=== PATIENT | female | born 1980 | race Caucasian/White ===

== ENCOUNTER 2024-02-25 07:00 | Outpatient (CLI) | payer OTHER ==
--- NOTE | 2024-02-25 15:31 | XRAY Report ---
PROCEDURE: Lumbar Spine 2-3V INDICATIONS: RIGHT LUMBAR RADICULOPATHY TECHNIQUE: 2 views of the lumbar spine were acquired. COMPARISON: None. FINDINGS: Bones: 5 [id number] vertebrae are present. Minor levocurvature with the apex at L2. Straighteni ng of the normal lumbar lordosis. Otherwise normal alignment. Moderate disc height loss L4-5 and L5-S 1 with mild endplate spurs. There is normal bony alignment. No vertebral body compression fractures. No suspicious bony lesions. Soft tissues: Overlying bowel gas pattern is normal. No suspicious soft tissue calcifications. IMPRESSION: Degenerative disc and endplate changes at L4-5. Reviewed by: Rola Dukes MD on 02/25/2024 3:29 PM PDT Approved by: Rola Dukes MD on 02/25/2024 3:29 PM PDT Station ID: [id number]
== END 2024-02-25 23:59 | disposition home or self-care (01) ==
LOC: DI.S 07:00
PROVIDERS: ATTEND Registered Nurse
DX: M51.36 Other intervertebral disc degeneration, lumbar region (principal); M51.37 Other intervertebral disc degeneration, lumbosacral region

== ENCOUNTER 2024-03-28 09:30 | Emergency (ER) | payer OTHER ==
--- NOTE | 2024-03-28 10:18 | ED Physician Documentation ---
PD HPI BACK PAIN - Stated complaint Stated Complaint: NECK/BACK PX - Chief complaint Chief Complaint: Back Pain - Additional information Additional information: Placing 43-year-old female with back pain for more than 6 weeks. She has been seen at urgent care and had some plain films which were suggestive that she might have a "bad disc" in her back. MRI was recommended. She attempted to get an MRI as an outpatient and her insurance declined to pay for it. She comes here with ongoing back pain she describes right-sided back pain rating down into her leg. She has a PCP appointment scheduled for Thursday. She would like her MRI done today. No bowel or bladder changes. Review of Systems Musculoskeletal: reports: Back pain Neurologic: denies: Focal weakness PD PAST MEDICAL HISTORY - Past Medical History Past Medical History: Yes Cardiovascular: None Respiratory: Pneumonia Neuro: Migraines Endocrine/Autoimmune: None GI: None GANTRY RIGGER: None : None HEENT: None Psych: None Musculoskeletal: None, Chronic back pain Derm: None - Past Surgical History Past Surgical History: Yes /GANTRY RIGGER: section - Present Medications Home Medications: Ambulatory Orders Medication Instructions Recorded Confirmed Acetaminophen [Tylenol] 500 mg PO Q8HR PRN 03/28/24 03/28/24 HYDROcod/ACETAM 5/325 [[place] 5/325] 1 - 2 tab PO Q6H PRN #15 tablet 03/28/24 Ibuprofen 600 mg PO Q6HR PRN 03/28/24 03/28/24 methylPREDNISolone [Medrol Dose 1 each PO .PACKAGEINSTRUCTIONS 6 03/28/24 Pack] Days #1 each - Allergies Allergies/Adverse Reactions: Allergies Allergy/AdvReac Type Severity Reaction Status Date / Time No Known Drug Allergies Allergy Verified 03/28/24 09:35 - Social History Does the pt smoke?: Yes Smoking Status: Current every day smoker Does the pt drink ETOH?: Yes ETOH Use: Liquor Does the pt have substance abuse?: Yes Substance Use and Type: Marijuana - Immunizations Immunizations are current?: Yes PD ED PE NORMAL - Vitals Vital signs reviewed: Yes - General General: Alert and oriented X 3 - HEENT HEENT: Atraumatic - Neck Neck: Supple, no meningeal sign - Cardiac Cardiac: RRR - Respiratory Respiratory: No respiratory distress - Abdomen Abdomen: Normal bowel sounds - Back Back: No CVA TTP, No spinal TTP, Other (Positive straight leg raise on the right) - Neuro Neuro: Alert and oriented X 3, nurse staff community health 2-12 intact (Walks on toes and heels), No motor deficit, No sensory deficit Results - Vitals Vitals: Vital Signs - 24 hr 03/28/24 03/28/24 09:35 10:58 Temperature 36.7 C Heart Rate 93 80 Respiratory 18 18 Rate Blood Pressure 174/108 H 142/82 H O2 Saturation 100 98 Oxygen O2 Source Room air PD Medical Decision Making - ED course ED course: Is she is given Toradol and [place] for pain. We discussed the she would absolutely benefit from an MRI it would not change emergent management we will put her on Medrol for presumed lumbar radiculopathy and have her follow-up with PCP on Thursday should an argument with the insurance company be necessary to get her MRI that is indicated. Will prescribe Medrol and a limited course of pain medications until she can see her PCP with the understanding that there will be no further pain medication prescribed from the emergency department. We also had a talk about the natural history of back pain specifically that her MRI is unlikely to provide information that we will lead to a cure and that her pain is likely to persist but that understanding anatomically was going on may lead us to other alternative therapies such as epidural steroid injection PT etc. Departure - Departure Disposition: Home, Self Care Clinical Impression: Sciatica, Back pain Instructions: ED Sciatica Prescriptions: methylPREDNISolone [Medrol Dose Pack] 1 each PO .PACKAGEINSTRUCTIONS 6 Days #1 each HYDROcod/ACETAM 5/325 [[place] 5/325] 1 - 2 tab PO Q6H PRN #15 tablet PRN Reason: Pain Comments: As I mentioned it seems like your low back pain is possibly caused by what is called a radiculopathy which means that there is some pressure being put on a nerve going to your leg. We will give you a Medrol Dosepak which will help shrink down that tissue in that area. Your primary care physician can help you with the MRI which might give some anatomic details and might give us more clues in terms of long-term pain management. Ultimately he will need MRI physical therapy and and probably referral to spine surgery and/or a pain management doctor. In the meantime we will give you a short course of pain medication to get you through until Thursday when he can establish primary care. We will give you the Medrol dose pack which will help with the disc tissue hopefully. Discharge Date/Time: 03/28/24 10:58
[2024-03-28] MEDS: KETOROLAC 60 MG/2 ML VIAL IM STA (10:43)
[2024-03-28] MEDS: HYDROcod/ACETAM 5/325 MG TABLET PO STA (10:44)
[2024-03-28 11:09] VITALS: BP 142/82; O2SAT 98
== END 2024-03-28 10:58 | disposition home or self-care (01) ==
LOC: ED 09:30
DX: M54.31 Sciatica, right side (principal); F17.200 Nicotine dependence, unspecified, uncomplicated
CPT/HCPCS: 96372; 99283; A9270

== ENCOUNTER 2024-08-13 09:28 | Outpatient (CLI) | payer OTHER ==
--- NOTE | 2024-08-15 10:15 | MRI Report ---
PROCEDURE: Lumbar Spine WO INDICATIONS: LUMBAR RADICULOPATHY TECHNIQUE: Noncontrast sagittal T1 spin echo and T2 fast echo, sagittal STIR, axial T1 and T2 fast spin echo thr ough the lumbar spine. In cases with scoliosis, additional coronal T2 fast spin echo may be performe d. COMPARISON: 02/25/2024 FINDINGS: Image quality: Excellent. Alignment and Curvature: Loss of the normal lordotic curvature Bone Marrow Modic type II changes at L4-5. No acute vertebral body compression fractures. Spinal Cord: Conus medullaris terminates at the L1 level. Visualized cord demonstrates normal signa l and size. Paraspinous Soft Tissues: No paravertebral masses. T12-L1: Normal in appearance. L1-L2: Normal in appearance. L2-L3: Normal in appearance. L3-L4: Disc desiccation and broad-based disc bulge. L4-L5: Broad-based disc bulge with superimposed disc protrusion in the subarticular and foraminal s pace on the right. This protrusion contacts the exiting L4 nerve root on the right, and approaching L 5 nerve root on the right. L5-S1: Disc desiccation. Broad-based disc bulge. IMPRESSION: Broad-based disc bulge with superimposed disc protrusion at L4-5, contacting the right L4 and L5 nerv e roots. Modic type II changes at L4-5. Reviewed by: Sameer Carballo MD on 08/15/2024 10:13 AM PDT Approved by: Sameer Carballo MD on 08/15/2024 10:13 AM PDT Station ID: [id number]
== END 2024-08-13 09:29 | disposition home or self-care (01) ==
LOC: DI 09:28
PROVIDERS: ATTEND Nurse Practitioner Gerontology
DX: M51.16 Intervertebral disc disorders with radiculopathy, lumbar region (principal); M51.36 Other intervertebral disc degeneration, lumbar region; M51.37 Other intervertebral disc degeneration, lumbosacral region